=== PATIENT | male | born 1965 | race Caucasian/White ===

== ENCOUNTER → 2021-03-22 | Outpatient (CLI) | payer MEDICARE ==
--- NOTE | 2021-03-24 10:19 | P.ARTDOP ---
Arterial Doppler LOWER EXTREMITY ARTERIAL DOPPLER: DATE OF SERVICE: 03/22/2021 Reason for study: Suspect PVD. Doppler waveforms: Multiphasic bilaterally throughout with good toe waveforms. Pulse volume recording: []. Pressure gradients: None. Ankle-brachial indices: Greater than 1 bilaterally. Toe brachial indices: 0.75 on the right, 0.75 on the left Impression: Normal study.
== END | disposition home or self-care (01) ==
LOC: RADUSWWP 14:48
PROVIDERS: ATTEND Family Medicine
DX: I73.9 Peripheral vascular disease, unspecified (principal)
CPT/HCPCS: 93922; 93923

== ENCOUNTER → 2021-09-15 | Outpatient (CLI) | payer MEDICARE ==
[2021-09-15 14:50] LABS: Basophils # (A) 0.2 k/uL (0-0.2); Basophils % (A) 1 %; Eosinophils # (A) 0.4 k/uL (0-0.7); Eosinophils % (A) 3 %; HGB 16.5 gm/dL (13.0-17.5); Lymphocytes % (A) 26 %; MCH 30.6 pg (25.0-35.0); MCHC 32.9 g/dL (31.0-37.0); MCV 92.7 fL (80.0-100.0); Mean Platelet Volume 7.4; Monocytes # (A) 0.8 k/uL (0-1.0); Monocytes % (A) 7 %; Neutrophils # (A) 6.9 k/uL (1.3-7.7); Neutrophils % (A) 61 %; Platelet Count 432 k/uL (150-450); RBC 5.39 m/uL (4.30-5.90); RDW 13.7 % (11.5-15.5); WBC 11.4 k/uL (3.8-10.6)
--- NOTE | 2021-09-15 15:57 | XR ---
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 Some erosive change, overhanging edges present at the interphalangeal joint of the first digit, there is associated soft tissue swelling, no definite calcifications withi n the soft tissues however. Digits are flexed which could limit evaluation. Some irregularity at the metatarsophalangeal joint is noted, distal first metatarsal shows a contour abnormality. There is a s mall plantar calcaneal spur. Some degenerative change present at the intertarsal joints. IMPRESSION: Correlate for possible gout involving the first digit. Correlate for cellulitis, follow-u p as indicated.
[2021-09-15 18:01] LABS: African American GFR (CKD) 114.9 (60.0-200.0); Albumin 4.6 g/dL (3.8-4.9); Albumin/Globulin Ratio 1.59 (1.60-3.17); Anion Gap 20.5 mmol/L (10.00-18.00); Blood Urea Nitrogen 16.8 mg/dL (9.0-27.0); Calcium 9.8 mg/dL (8.7-10.3); Carbon Dioxide 20.5 mmol/L (20.0-27.5); Globulin 2.9 g/dL (1.6-3.3); Non-African American GFR(CKD) 99.2 (60.0-200.0); Potassium 4.8 mmol/L (3.5-5.5); Total Bilirubin 0.3 mg/dL (0.30-1.20); Total Protein 7.5 g/dL (6.2-8.2)
== END | disposition home or self-care (01) ==
LOC: LABWHC1 13:54
PROVIDERS: ATTEND Podiatrist
DX: L97.511 Non-pressure chronic ulcer of other part of right foot limited to breakdown of skin (principal); G90.523 Complex regional pain syndrome I of lower limb, bilateral
CPT/HCPCS: 36415; 80053; 85025

== ENCOUNTER → 2021-10-08 | Outpatient (CLI) | payer MEDICARE ==
--- NOTE | 2021-10-10 08:27 | US ---
EXAMINATION TYPE: US arterial LE single level DATE OF EXAM: 10/08/2021 3:05 PM CLINICAL HISTORY: I73.9 PERIPHERAL VASCULAR DISEASE, UNSPECIFIED. History of bilateral resting pain. Comparison: Prior study March 22, 2021 Doppler Waveforms: Right: Monophasic to multiphasic similar to prior Left: Monophasic to multiphasic similar to prior Pulse Volume Recording: Flattened bilaterally more prominent from prior Ankle-Brachial Indices: Right: 1.06 Left: 1.03 Toe Brachial Indices: Unable to get TBI - toe sensors not working IMPRESSION: Persistent normal ULYSSES values. Loss of phasicity may be technical, other etiologies not e xcluded.
== END | disposition home or self-care (01) ==
LOC: RADUSWWP 14:01
PROVIDERS: ATTEND Family Medicine
DX: I73.9 Peripheral vascular disease, unspecified (principal)
CPT/HCPCS: 93922

== ENCOUNTER 2022-05-02 09:48 | Day surgery (SDC) | payer MEDICARE ==
[~2022-05-02 09:48] MED LIST: LACTATED RINGERS 1,000 ML IV SCH; LIDOCAINE 1% (10MG/ML) FOR IV START INTRADERMA PRN
[2022-05-02 10:30] VITALS: TEMP 98.3
[2022-05-02] MEDS ORDERED: PROPOFOL 10 MG/ML 20 ML VIAL IV ONE (10:47)
--- NOTE | 2022-05-02 11:11 | P.PCN ---
Date of Procedure: 05/02/22 Preoperative Diagnosis: Colon cancer screening Postoperative Diagnosis: Colon polyp Procedure(s) Performed: Colonoscopy with polypectomy Anesthesia: MAC Surgeon: Natividad Gasca Pathology: other Condition: stable Disposition: PACU Description of Procedure: Patient presents for colon cancer screening. He's taken to the endoscopy suite where colonoscope is passed per rectum to the cecum. Excellent prep. There was a small 4-5 mm polyp at the hepatic flexure biopsied and destroyed with hot biopsy forceps. Otherwise there was no evidence of mass lesion, ulcer, stricture or other mucosal abnormality. No significant hemorrhoidal disease was seen on retroflexion of the scope. He tolerated the procedure without difficulty and was taken to recovery room in satisfactory condition. We'll call with the report of the polypectomy likely repeat colonoscopy in 5 years Plan - Discharge Summary Discharge Rx Participant: No New Discharge Prescriptions: No Action Dextroamphetamine/Amphetamine [Adderall] 30 mg PO BID oxyCODONE-APAP 10-325MG [Percocet 10-325 mg] 1 tab PO Q6HR PRN PRN Reason: Pain ALPRAZolam [Xanax] 0.25 mg PO TID PRN PRN Reason: Anxiety Cholecalciferol [Vitamin D3 (25 Mcg = 1000 Iu)] 1 tab PO DAILY Aspirin/Sod Bicarb/Citric Acid [[place] Original Tab Eff] 1 each PO DAILY Pregabalin [Lyrica] 150 mg PO BID Ibuprofen [Motrin] 200 mg PO Q6HR PRN PRN Reason: Pain Discharge Medication List ALPRAZolam [Xanax] 0.25 mg PO TID PRN 04/27/22 [History] Cholecalciferol [Vitamin D3 (25 Mcg = 1000 Iu)] 1 tab PO DAILY 04/27/22 [History] Dextroamphetamine/Amphetamine [Adderall] 30 mg PO BID 04/27/22 [History] Pregabalin [Lyrica] 150 mg PO BID 04/27/22 [History] oxyCODONE-APAP 10-325MG [Percocet 10-325 mg] 1 tab PO Q6HR PRN 04/27/22 [History] Aspirin/Sod Bicarb/Citric Acid [[place] Original Tab Eff] 1 each PO DAILY 05/02/22 [History] Ibuprofen [Motrin] 200 mg PO Q6HR PRN 05/02/22 [History] Discharge Disposition: HOME SELF-CARE
[2022-05-02 11:17] VITALS: RESP 16
[2022-05-02 11:25] VITALS: BP 110/64; PULSE 69
== END 2022-05-02 11:48 | disposition home or self-care (01) ==
LOC: ORWHC2ENDO 09:48
PROVIDERS: ATTEND Surgery
DX: Z12.11 Encounter for screening for malignant neoplasm of colon (principal); D12.3 Benign neoplasm of transverse colon; Z79.82 Long term (current) use of aspirin
CPT/HCPCS: 88305; 45384; J2704

== ENCOUNTER → 2024-01-15 | Outpatient (CLI) | payer MEDICARE ==
--- NOTE | 2024-01-16 14:25 | CA ---
Transthoracic Echo Report Name: Sg Kim Age: 58 Gender: M : 1965 Exam Date: 01/15/2024 15:29 Exam Location: [facility] Ht (in): 69 Wt (lb): 179 Ordering Physician: Farhan Bingham MD Attending/Referring Phys: Zachery COMER [employer] Yuly Flores, RD Procedure CPT: Indications: R01.1 CARDIAC MURMUR I10 HTN Cardiac Hx: Technical Quality: Fair Contrast 1: Total Dose (mL): Contrast 2: Total Dose (mL): MEASUREMENTS (Male / Female) Normal Values 2D ECHO LV Diastolic Diameter PLAX 4.1 cm 4.2 - 5.9 / 3.9 - 5.3 cm LV Systolic Diameter PLAX 2.3 cm IVS Diastolic Thickness 1.1 cm 0.6 - 1.0 / 0.6 - 0.9 cm LVPW Diastolic Thickness 1.3 cm 0.6 - 1.0 / 0.6 - 0.9 cm LV Relative Wall Thickness 0.6 RV Internal Dim ED PLAX 1.6 cm LA Systolic Diameter LX 4.0 cm 3.0 - 4.0 / 2.7 - 3.8 cm LV Diastolic Volume MOD BP 53.8 cm??? 67 - 155 / 56 - 104 cm??? LV Systolic Volume MOD BP 26.4 cm??? - 58 / 19 - 49 cm??? LV Ejection Fraction MOD BP 50.8 % >= 55 % LV Cardiac Index MOD BP 1393.9 cm???/min???m??? LV Diastolic Volume MOD 4C 60.8 cm??? LV Systolic Volume MOD 4C 28.4 cm??? LV Ejection Fraction MOD 4C 53.4 % LV Cardiac Index MOD 4C 1653.7 cm???/min???m??? LV Diastolic Length 4C 7.3 cm LV Systolic Length 4C 6.4 cm LV Diastolic Volume MOD 2C 43.5 cm??? LV Systolic Volume MOD 2C 21.1 cm??? LV Ejection Fraction MOD 2C 51.5 % LV Cardiac Index MOD 2C 1142.0 cm???/min???m??? LV Diastolic Length 2C 6.6 cm LV Systolic Length 2C 5.5 cm LA Volume 52.4 cm??? 18 - 58 / 22 - 52 cm??? LA Volume Index 26.2 cm???/m??? 16 - 28 cm???/m??? M-MODE Aortic Root Diameter MM 3.4 cm LA Systolic Diameter MM 2.6 cm LA Ao Ratio MM 0.8 AV Cusp Separation MM 2.0 cm DOPPLER AV Peak Velocity 141.0 cm/s AV Peak Gradient 8.0 mmHg MV Area PHT 2.6 cm??? Mitral E Point Velocity 94.2 cm/s Mitral A Point Velocity 115.9 cm/s Mitral E to A Ratio 0.8 MV Deceleration Time 291.0 ms TR Peak Velocity 274.9 cm/s TR Peak Gradient 30.2 mmHg Right Ventricular Systolic Press 34.3 mmHg FINDINGS Left Ventricle Left ventricular ejection fraction is estimated at 55-60 %. Left ventricular cavity size normal. Mildly increased left ventricular wall thickness. No obvious regional wall motion abnormalities. Right Ventricle Normal right ventricular size and function. Right ventricular systolic pressure within normal limits. Right Atrium Normal right atrial size. Left Atrium Mild left atrial dilatation. Mitral Valve Structurally normal mitral valve. Trace mitral regurgitation. No mitral stenosis. Aortic Valve Trileaflet aortic valve. No aortic valve stenosis or regurgitation. Tricuspid Valve Structurally normal tricuspid valve. Trace to mild tricuspid regurgitation. No tricuspid stenosis. Pulmonic Valve Structurally normal pulmonic valve. Trace pulmonic regurgitation. No pulmonic stenosis. Pericardium No pericardial or pleural effusion. Aorta Normal size aortic root and proximal ascending aorta. CONCLUSIONS Left ventricular ejection fraction 55-60% Mild increased left ventricular wall thickness RVSP 34 Trace mitral regurgitation Trace to mild tricuspid regurgitation Previewed by: Dr. Gabriel Fletcher DO (Electronically Signed) Final Date: 16 January 2024 14:24
== END | disposition home or self-care (01) ==
LOC: RADECHMAIN 15:20
PROVIDERS: ATTEND Family Medicine
DX: R01.1 Cardiac murmur, unspecified (principal); I10 Essential (primary) hypertension
CPT/HCPCS: 93306